=== PATIENT | male | born 1940 | race Caucasian/White ===

== ENCOUNTER 2016-12-17 10:19 | Emergency (ER) | payer OTHER, MEDICARE ==
[~2016-12-17] VITALS: Ht 182.9 cm; Wt 107.5 kg
[~2016-12-17 10:19] MED LIST: AUGMENTIN 875875 MG PO; CARDURA2 M1 PO; FISH OIL CONC1000 M1 PO; LANTUS SOL100 UNIT/1 SC; METFORMIN HCL1000 M1 PO; METOPROLOL TART25 M1 PO; OCUVITE WITH L1 EACH PO; OMEPRAZOLE40 M1 PO; ZOCOR40 M1 PO
--- NOTE | 2016-12-17 11:25 | ED GENERAL ADULT ---
History of Present Illness General Chief Complaint: Upper Respiratory Sx/Fever Stated Complaint: COUGH, NASAL CONGESTION Source: patient Exam Limitations: no limitations Vital Signs & Intake/Output Vital Signs & Intake/Output Vital Signs Date Time Temp Pulse Resp B/P Pulse O2 O2 Flow FiO2 Ox Delivery Rate 12/17 1243 97.3 73 18 129/62 95 Room Air 12/17 1220 98 12/17 1120 98 Room Air 12/17 1043 97.0 72 20 127/65 94 Room Air Allergies Coded Allergies: NO KNOWN ALLERGIES (12/17/16) Reconcile Medications Albuterol Sulfate (Proair Hfa) 90 MCG HFA.AER.AD 2 PUF INH Q4-6 PRN PRN BRONCHITIS Amoxicillin/Potassium Clav (Augmentin 875-125 Tablet) 875 MG-125 MG TABLET 1 TAB PO BID BRONCHITIS Benzonatate (Tessalon Perle) 100 MG CAPSULE 1 CAP PO TID PRN COUGH Doxazosin Mesylate (Cardura) 2 MG TABLET 1 TAB PO QPM UNKNOWN (Reported) Glyburide 2.5 MG TABLET 1 TAB PO DAILY DM (Reported) Insulin Glargine,Hum.rec.anlog (Lantus Solostar) 100 UNIT/ML (3 ML) INSULN.PEN 16 UNIT SC QPM DIABETES (Reported) Metformin HCl 1,000 MG TABLET 1 TAB PO BID DIABETES (Reported) Metoprolol Tartrate 25 MG TABLET 1 TAB PO BID HEART (Reported) [place]-3 Fatty Acids (Fish Oil Concentrate) 1,000 MG CAPSULE 1 CAP PO DAILY SUPPLEMENT (Reported) Omeprazole 40 MG CAPSULE.DR 1 CAP PO DAILY GI (Reported) Simvastatin (Zocor*) 40 MG TABLET 1 TAB PO QPM CHOLESTEROL (Reported) Vit A,C & E/Lutein/Minerals (Ocuvite With Lutein Tablet) 1,000-60-2 TABLET 1 TAB PO DAILY SUPPLEMENT (Reported) Triage Note: TRIAGE: PT TO ER WITH C/C CROUPY SOUNDING COUGH, NASAL CONGESTION AND "WHEEZING IN MY CHEST" ONSET SATURDAY AFTER RETURNING HOME FROM [place]. ALSO REPORTS "MY EARS ARE BLOCKED". Triage Nurses Notes Reviewed? yes Onset: Gradual Duration: week(s): (1) Timing: remote history Injury Environment: home Severity: moderate Severity Numbers: 6 No Modifying Factors: none HPI: Patient is a 76-year-old male presenting to the emergency department with with chief complaint of upper respiratory congestion cough of clear sputum that has been going on for the past one week. He reports that he recently arrived home from traveling to [place]. He was on a cruise and on an airplane. Unsure sick contacts. He's been taking [id number]-[id number] Tylenol congestion medication. With little to no relief. No fevers or chills. Slight decreased by mouth intake. Still drinking water without difficulty. Denies any change in urinary function. No change in bowel habits. Denies any weight changes. Shortness of breath only with coughing. Denies any chest pain or palpitations. He also reports that he feels like his ears are clogged and positive sore throat with postnasal drip. (EMIR ARIAS) Past History Travel History Traveled to [facility] past 21 day No Medical History Any Pertinent Medical History? 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 No (EMIR ARIAS) Review of Systems Review of Systems Constitutional: Reports: malaise. Comments Review of systems: See HPI, All other systems negative. Constitutional, no chills fever or weight loss HEENT: No visual changes Cardiovascular: No chest pain ,palpitation , orthopnea or ankle swelling Skin, no jaundice no rashes Respiratory: No dyspnea OR hemoptysis GI: No nausea no vomiting : No dysuria No hematuria Muscle skeletal: no back pain, no neck pain, Neurologic: No numbness no confusion Psych: No stress anxiety or depression,. Heme/endocrine: No bruising no bleeding no polyuria or polydipsia Immunology: No splenectomy or history of AIDS (EMIR ARIAS) Physical Exam Physical Exam General Appearance: well developed/nourished, no apparent distress, alert, awake , comfortable Comments: Well-developed well-nourished person in no acute distress HEENT: Pupils equally round and reactive to light and accommodation. Nose is atraumatic. External auditory canal and Tympanic membranes clear. Pharynx is mildly erythematous, no exudates.. Positive postnasal drip. No swelling or edema. Fluid noted behind TMs bilaterally, minimal erythema noted TMs bilaterally. No cerumen impaction noted. No maxillary or frontal sinus tenderness to palpation. Neck: Supple, no lymphadenopathy, normal range of motion without pain or tenderness Back: Nontender, no CVA tenderness. Full range of motion Cardiovascular: Regular rate and rhythms no murmurs rubs or gallops, normal JVP Respiratory: Chest nontender. No respiratory distress.breath sounds diminished to auscultation bilaterally Abdomen: Soft, NON-TENDER, nondistended, no appreciable organomegaly. Normal bowel sounds. No ascites. OLD SURGICAL SCAR IN RUQ. Extremity: No edema, no calf tenderness to palpation, normal and equal pulses. Neuro: Alert oriented x3 Skin: No appreciable rash on exposed skin, skin is warm and dry. Psych: Mood and affect is normal, memory and judgment is normal. Core Measures ACS in differential dx? No CVA/TIA Diagnosis: No Severe Sepsis Present: No Septic Shock Present: No (ELTON LILLY,EMIR) Progress Differential Diagnoses I considered the following diagnoses in my evaluation of the patient: Sinusitis , bronchitis, pneumonia, upper respiratory infection, viral syndrome Plan of Care: Orders Procedure Date/time Status FingerStick- Glucose 12/17 1124 Active Diagnostic Imaging: Viewed by Me: Radiology Read. Discussed w/RAD: Radiology Read. Radiology Impression: PATIENT: JOBY COELLO PRESENT AGE: 76 PATIENT ACCOUNT NO: [id number] : 40 LOCATION: [facility] ORDERING PHYSICIAN: EMIR LILLY SERVICE DATE: 12/17/16 EXAM TYPE: RAD - XRY-CHEST XRAY, PA AND LATERAL EXAMINATION: XR CHEST CLINICAL INFORMATION: Cough and congestion. COMPARISON: None TECHNIQUE: 2 views of the chest were obtained. FINDINGS: Both lungs are well-expanded and clear of acute process. The heart size and pulmonary vascularity is normal. No gross bony abnormality seen. IMPRESSION: Unremarkable chest exam. DICTATED BY: DENIS MUNSON,MJ DATE/TIME DICTATED:12/17/161154 MILL DRESSER:CHRISTOPHER DATE/TIME TRANSCRIBED: / 1152 CONFIDENTIAL, DO NOT COPY WITHOUT APPROPRIATE AUTHORIZATION. < Electronically signed in Other Vendor System> SIGNED BY: MJ BARRIOS MD 6 Initial ED EKG: none Comments: 12/17/2016 11:48:23 PMPatient is well-appearing in no acute distress, oxygen saturation on arrival is 94% with diminished lung sounds previous medical for chest x-ray. Also given DuoNeb treatment. He will also be given a dose of Decadron. Fingerstick is 188. 12/17/2016 12:48:30 PMPatient reports he is feeling much better after DuoNeb treatment. Lungs have better aeration. Pulse ox is now 98 on room air. No acute distress. X-rays negative. Patient likely has bronchitis. He will he treated with antibiotics, inhaler and cough medication. He will follow-up with his PCP within the next 24-48 hours. Patient is nontoxic and compliant. D/W Rangel he agrees with plan. (EMIR ARIAS) Departure Departure Time of Disposition: 1224 Disposition: HOME OR SELF CARE Condition: Stable Clinical Impression Primary Impression: Bronchitis Referrals: ALIDA MUNSON,LEISA Day (PCP/Family) Additional Instructions: Follow-up with her primary care physician call to make an appointment. Take antibiotics as prescribed. Use inhaler as directed. Take off medication as directed. You're given a dose of steroids here in the emergency department to help with cough and inflammation. Which a follow-up the primary care physician in the next 24-48 hours or return for concerns. Departure Forms: Customer Survey General Discharge Information Prescriptions: Current Visit Scripts Amoxicillin/Potassium Clav (Augmentin 875-125 Tablet) 1 TAB PO BID #20 TAB Benzonatate (Tessalon Perle) 1 CAP PO TID PRN COUGH #30 CAP Albuterol Sulfate (Proair Hfa) 2 PUF INH Q4-6 PRN PRN BRONCHITIS #1 INHAL (EMIR ARIAS) PA/PROPERTY MANAGEMENT SPECIALIST Co-Sign Statement Statement: ED Attending supervision documentation- [X] I saw and evaluated the patient. I have also reviewed all the pertinent lab results and diagnostic results. I agree with the findings and the plan of care as documented in the PA's/PROPERTY MANAGEMENT SPECIALIST's documentation. [X] I have reviewed the ED Record and agree with the PA's/PROPERTY MANAGEMENT SPECIALIST's documentation. [] Additions or exceptions (if any) to the PAs/PROPERTY MANAGEMENT SPECIALIST's note and plan are summarized below: [] (DYLAN MUNSON,DILIP Beckford) Critical Care Note Critical Care Note Critical Care Time: non-applicable (ELTON LILLY,EMIR)
--- NOTE | 2016-12-17 11:59 | RADIOLOGY REPORT ---
EXAMINATION: XR CHEST CLINICAL INFORMATION: Cough and congestion. COMPARISON: None TECHNIQUE: 2 views of the chest were obtained. FINDINGS: Both lungs are well-expanded and clear of acute process. The heart size and pulmonary vascularity is normal. No gross bony abnormality seen. IMPRESSION: Unremarkable chest exam.
[2016-12-17] MEDS ORDERED: GLYBURIDE2.5 M1 PO (12:22)
[2016-12-17] MEDS ORDERED: TESSALON PERLE100 M1 PO (12:28)
[2016-12-17] MEDS ORDERED: PROAIR HFA8.5 GM INH (12:28)
[2016-12-17] MEDS ORDERED: AUGMENTIN 875-1 EACH PO (12:28)
[2016-12-17 12:43] VITALS: BP 129/62
== END 2016-12-17 12:45 ==
LOC: ERH 10:19
DX: J40 Bronchitis, not specified as acute or chronic (principal); Z87.891 Personal history of nicotine dependence
CPT/HCPCS: 1263